=== PATIENT | male | born 1975 | race Caucasian/White ===

== ENCOUNTER 2018-01-07 11:32 | Outpatient (CLI) | payer OTHER ==
--- NOTE | 2018-01-07 13:13 | RAD ---
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 Chronic right heel pain. COMPARISON: None. FINDINGS: There is excessive bony hypertrophy of the calcaneus. No fracture. No cortical irregularity or alma osteal reaction. There is associated overlying soft tissue swelling. IMPRESSION: Increased soft tissue prominence involving the calcaneus, near the attachment site of the Achilles te ndon, compatible with the patient's history of Madison deformity. POS: RONALDO
== END 2018-01-07 11:33 | disposition home or self-care (01) ==
LOC: SCSRAD 11:32
PROVIDERS: ATTEND Family Medicine
DX: M92.61 Juvenile osteochondrosis of tarsus, right ankle (principal)

== ENCOUNTER 2018-10-22 16:16 | Outpatient (CLI) | payer OTHER ==
--- NOTE | 2018-10-22 19:27 | CT ---
CT ABDOMEN AND PELVIS 10/22/18 COMPARISON: 03/15/15. HISTORY: Right sided flank pain for three days. TECHNIQUE: Axial CT imaging obtained at 5 mm intervals from the lung bases through the pubic symphysis without c ontrast. Coronal reformatted imaging obtained. FINDINGS: The lack of contrast media limits assessment of the imaged viscera, the vascular structures, the ivana l, and for lymphadenopathy. The imaged lung bases demonstrate no acute findings. There is no free intraperitoneal air or fluid noted. Soft tissue density again noted in the right inguinal canal consistent with superior location of the patient's testicle. Limited assessment of the liver, gallbladder, spleen, pancreas, and adrenal glands is unremarkable. Numerous subcentimeter renal calculi are noted bilaterally. There are 5-6 renal stones on the right m easuring up to approximately 5 mm. There are at least 3 renal stones on the left measuring up to appr oximately 6-7 mm. There is mild prominence of the intrarenal collecting system on the right, not seen on the prior exam . There is also mild prominence of the right ureter to the level of the ureterovesicular junction. Th ere is no calcification seen along the course of the right ureter however. There is no evidence for obstructive uropathy on the left. Of note, there is a calcification on axial image 93 measuring 4-5 mm along the inferior aspect of the urinary bladder, near the junction of the prostate gland. Limited assessment of the bowel demonstrates no evidence for inflammatory change or obstruction. The appendix is visualized and appears within normal limits. Review of the osseous structures demonstrate s no worrisome lytic or blastic lesions. IMPRESSION: Bilateral renal calculi. Mild prominence of the intrarenal collecting system on the right and mild pr ominence of the right ureter. Calcification measuring 4-5 mm on axial image 93 is at the junction of the urinary bladder and prostate gland and may represent a recently passed stone in the region of the proximal aspect of the prostatic urethra. Clinical correlation is required. POS: RONALDO
== END 2018-10-22 16:17 | disposition home or self-care (01) ==
LOC: SCSCT 16:16
PROVIDERS: ATTEND Nurse Practitioner Family
DX: N20.0 Calculus of kidney (principal)
CPT/HCPCS: 74176

== ENCOUNTER 2021-12-18 13:42 | Outpatient (CLI) | payer BC | END 2021-12-18 13:43 | disposition home or self-care (01) | LOC: SCSRAD 13:42 | PROVIDERS: ATTEND Family Medicine | DX: M54.50 Low back pain, unspecified (principal); M51.37 Other intervertebral disc degeneration, lumbosacral region | CPT/HCPCS: 72100 ==

== ENCOUNTER 2022-09-05 09:40 | Outpatient (CLI) | payer BC | END 2022-09-05 09:41 | disposition home or self-care (01) | LOC: SCSRAD 09:40 | PROVIDERS: ATTEND Family Medicine | DX: N20.0 Calculus of kidney (principal) | CPT/HCPCS: 74018 ==

== ENCOUNTER 2022-09-20 09:54 | Outpatient (CLI) | payer BC | END 2022-09-20 09:55 | disposition home or self-care (01) | LOC: SCSRAD 09:54 | PROVIDERS: ATTEND Family Medicine | DX: R05.3 Chronic cough (principal) | CPT/HCPCS: 71046 ==

== ENCOUNTER 2023-09-05 13:02 | Outpatient (CLI) | payer BC | END 2023-09-05 13:03 | disposition home or self-care (01) | LOC: BICRAD 13:02 | PROVIDERS: ATTEND Podiatrist | DX: M76.62 Achilles tendinitis, left leg (principal); M76.61 Achilles tendinitis, right leg; M65.871 Other synovitis and tenosynovitis, right ankle and foot; M65.872 Other synovitis and tenosynovitis, left ankle and foot; M77.32 Calcaneal spur, left foot; M67.874 Other specified disorders of tendon, left ankle and foot ==